=== PATIENT | male | born 1990 | race Caucasian/White ===

== ENCOUNTER 2017-03-28 17:01 | Emergency (ER) | payer BC ==
[2017-03-28 17:28] VITALS: BP 137/79
[2017-03-28] MEDS ORDERED: Tetan/Diph/Pertus SYR(Tdap)* 0.5 ML SYR(BOOSTRIX) use SYR IM ONE (18:10)
--- NOTE | 2017-03-28 18:22 | UC ---
Lower Extremity/Ankle HPI - HPI Summary HPI Summary: Walking barefoot outside yesterday stepped on something sharp without looking and sustained two PWs in R foot near medial heel. One area is large, open, and draining surrounded by redness and causing a lot of pain, the other has dark spots in it and feels like FB. - History of Current Complaint Chief Complaint: UCLowerExtremity Stated Complaint: PUNCTURES ON BOTTOM OF FOOT Time Seen by Provider: 03/28/17 17:53 Hx Obtained From: Patient Onset/Duration: Sudden Onset, Lasting Days Severity Initially: Mild Severity Currently: Moderate Aggravating Factor(s): Standing, Ambulation Alleviating Factor(s): Rest Able to Bear Weight: Yes - Allergies/Home Medications Allergies/Adverse Reactions: Allergies Allergy/AdvReac Type Severity Reaction Status Date / Time No Known Allergies Allergy Verified 03/28/17 17:18 PMH/Surg Hx/FS Hx/Imm Hx Endocrine History Of: Denies: Diabetes, Thyroid Disease Cardiovascular History Of: Denies: Cardiac Disorders, Hypertension Respiratory History Of: Denies: COPD, Asthma GI/ History Of: Denies: Ulcer Psychological History Of: Reports: Anxiety, Depression - Surgical History Surgical History: None - Family History Known Family History: Positive: None - Social History Occupation: Employed Part-time Lives: With Family Alcohol Use: Daily Substance Use Type: Cocaine, Marijuana Substance Use Comment - Amount & Last Used: used last this AM Smoking Status (MU): Light Every Day Tobacco Smoker Type: eCigarettes - Immunization History Most Recent Tetanus Shot: about 10 years ago Review of Systems Constitutional: Negative Skin: Other - redness, pain, swelling, FB in R foot Eyes: Negative ENT: Negative Respiratory: Negative Cardiovascular: Negative Gastrointestinal: Negative Genitourinary: Negative Motor: Negative Neurovascular: Negative Musculoskeletal: Negative Neurological: Negative Psychological: Negative All Other Systems Reviewed And Are Negative: Yes Physical Exam Triage Information Reviewed: Yes Appearance: Well-Appearing, Well-Nourished, Pain Distress - mild Vital Signs: Initial Vital Signs Temp 98.1 F 03/28/17 17:19 Pulse 101 03/28/17 17:19 Resp 16 03/28/17 17:19 BP 137/79 03/28/17 17:19 Pulse Ox 96 03/28/17 17:19 Vital Signs Reviewed: Yes Eye Exam: Normal Eyes: Positive: Conjunctiva Clear ENT Exam: Normal ENT: Positive: Normal ENT inspection, Hearing grossly normal, Pharynx normal, TMs normal Dental Exam: Normal Neck exam: Normal Neck: Positive: Supple, Nontender, No Lymphadenopathy Respiratory Exam: Normal Respiratory: Positive: Chest non-tender, Lungs clear, Normal breath sounds, No respiratory distress, No accessory muscle use Cardiovascular Exam: Normal Cardiovascular: Positive: RRR, No Murmur Musculoskeletal Exam: Normal Musculoskeletal: Positive: Strength Intact, ROM Intact Neurological Exam: Normal Neurological: Positive: Alert Psychological Exam: Normal Skin Exam: Other - open draining wound on R foot surrounded by erythema. Wound superficially explored, no FB found. Smaller dark area explored with splinter forceps, no FB removed Lower Extremity Course/Dx - Differential Dx/Diagnosis Provider Diagnoses: R foot PWs. infection of R foot PW. possible retained FB in R foot Discharge - Discharge Plan Condition: Stable Disposition: HOME Prescriptions: Ciprofloxacin TAB* [Cipro 500 MG TAB*] 500 mg PO BID #14 tab Ibuprofen TAB* [Motrin TAB* 600 MG] 600 mg PO Q8H PRN #30 tab PRN Reason: Pain Sulfamethox/Trimethoprim DS* [Bactrim DS 800/160 TAB*] 1 tab PO BID #14 tab traMADol TAB* [Ultram*] 50 mg PO Q6HR PRN #12 tab MDD 4 PRN Reason: Pain Patient Education Materials: Puncture Wound (ED), Cellulitis (ED) Referrals: Carlos Groves MD [Primary Care Provider] - 1 Week Additional Instructions: If you do not see clear and rapid improvement within 48 hours, please come back here. Come back sooner if you have severe or sudden worsening.
== END 2017-03-28 18:53 | disposition home or self-care (01) ==
LOC: UCEAST 17:01
DX: S91.331A Puncture wound without foreign body, right foot, initial encounter (principal); L08.9 Local infection of the skin and subcutaneous tissue, unspecified; W26.9XXA Contact with unspecified sharp object(s), initial encounter; Y93.9 Activity, unspecified; Y92.9 Unspecified place or not applicable; Z23 Encounter for immunization; F41.8 Other specified anxiety disorders; F14.90 Cocaine use, unspecified, uncomplicated; F12.90 Cannabis use, unspecified, uncomplicated; F17.210 Nicotine dependence, cigarettes, uncomplicated
CPT/HCPCS: 90471; 90715; 99212; G0463